=== PATIENT | male | born 1940 | race Caucasian/White ===

== ENCOUNTER 2017-06-10 12:28 | Emergency (ER) | payer MEDICARE, BC ==
--- NOTE | 2017-06-10 14:15 | RAD ---
INDICATION: Fever and fatigue. COMPARISON: There are no prior studies available for comparison. TECHNIQUE: Dual-energy PA and lateral views of the chest were obtained. FINDINGS: The heart is within normal limits in size. There is a large mass which projects over the posterior central aspect of the left lung measuring 13 x 10 cm in size. This has relatively well-defined margins. The lungs are otherwise clear. No pleural effusion is seen. The results of this exam were discussed with the referring clinician. IMPRESSION: LARGE MASS IN THE LEFT LUNG RECOMMEND A CT OF THE CHEST WITH CONTRAST FOR FURTHER EVALUATION, IN ADDITION CONSIDER A CT OF THE ABDOMEN AND PELVIS WITH CONTRAST.
[2017-06-10 15:33] LABS: Hematocrit 40 % (42-52); Hemoglobin 13.8 g/dl (14.0-18.0); Mean Corpuscular HGB Conc 35 g/dl (31-36); Mean Corpuscular Hemoglobin 30 pg (27-31); Mean Corpuscular Volume 85 fL (80-94); Mean Platelet Volume 7 um3 (7.4-10.4); Red Blood Count 4.64 10^6/ul (4.0-5.4); Red Cell Distribution Width 14 % (10.5-15); White Blood Count 16.3 10^3/ul (3.5-10.8)
[2017-06-10 15:49] LABS: Albumin 3.9 g/dL (3.2-5.2); BUN/Creatinine Ratio 13.6 (8-20); Calcium 9.3 mg/dL (8.6-10.3); EGFR African American 119.5 (>60); EGFR Non-African American 92.9 (>60); Globulin 3.2 g/dL (2-4); Potassium 4.1 mmol/L (3.5-5.0); Total Bilirubin 0.6 mg/dL (0.2-1.0); Total Protein 7.1 g/dL (6.4-8.9)
[2017-06-10] MEDS ORDERED: Iohexol 300* (CONTRAST) 10 ML SDV IV ONE (15:52)
[2017-06-10 16:44] LABS: Urine Bacteria Absent (Absent); Urine Bilirubin Negative (Negative); Urine Glucose Negative (Negative); Urine Nitrite Negative (Negative)
--- NOTE | 2017-06-10 17:01 | RAD ---
Indication: Lung mass. Contrast: Administered 91.1 ml of OMNIPAQUE 300 mg/ml CT of the chest, abdomen and pelvis was performed after oral and IV contrast demonstration. Coronal and sagittal reconstructed images were obtained. The inferior thyroid lobes are unremarkable. No significant mediastinal adenopathy is noted. The heart demonstrates no pericardial effusion. There is a large heterogeneous mass in the lingula measuring approximately 11.6 x 9.0 x 9.1 cm. It is lobulated in nature. This just abuts the pleura. No abnormal erosion of the bone is noted. No other pulmonary lesions are identified. No pleural fluid is identified. The axilla demonstrates no evidence of abnormal adenopathy. CT of the abdomen and pelvis demonstrates liver to be normal in size. Low density lesions consistent with water density likely represent cysts are noted. No definite solid lesions are identified. No intrahepatic duct dilatation is noted. The gallbladder demonstrates no calcified gallstones. No pericholecystic fluid or wall thickening is identified. The spleen is normal in size. No adrenal lesions are noted. The kidneys demonstrate symmetric nephrograms without hydronephrosis. No retroperitoneal lymphadenopathy is noted. No dilated loops of bowel are noted. CT of the pelvis demonstrates enlarged prostate. No free fluid is identified. The prostate is enlarged. No hernias are noted. Cortical cysts are noted in the upper pole of the right kidney. IMPRESSION: Cysts are noted in the liver and kidneys. Large mass well-circumscribed in the left upper lobe of the lung measuring 11.6 x 9.0 x 9.1 cm. No mediastinal or axillary adenopathy is noted.
[2017-06-10 19:52] VITALS: BP 153/87
--- NOTE | 2017-06-12 11:01 | ED ---
Lester Connell Benjamin, scribed for Corey Murphy MD on 06/10/17 at 1606 . HPI Febrile Illness - HPI Summary HPI Summary: 76yo male c/o fever, malaise, fatigue, generalized body aches for couple of weeks, and today finally went to his PCP for his symptoms. There pt had a CXR that showed a mass on his left lung. Pt was sent to ED for CT scan of his chest and further evaluation. - History of Current Complaint Chief Complaint: EDFever Time Seen by Provider: 06/10/17 15:13 Hx Obtained From: Patient Onset/Duration: Started Weeks Ago, Still Present Timing: Constant Initial Severity: Moderate Current Severity: Moderate Pain Intensity: 0 Pain Scale Used: 0-10 Numeric Associated Signs and Symptoms: Myalgia, Weakness - Allergy/Home Medications Allergies/Adverse Reactions: Allergies Allergy/AdvReac Type Severity Reaction Status Date / Time Amoxicillin [From Augmentin] Allergy Rash Verified 06/10/17 12:38 Clavulanic Acid Allergy Rash Verified 06/10/17 12:38 [From Augmentin] Sulfa Antibiotics Allergy Rash Verified 06/10/17 12:38 PMH/Surg Hx/FS Hx/Imm Hx Infectious Disease History: No Infectious Disease History: Denies: Traveled Outside the [place] in Last 30 Days - Family History Known Family History: Positive: Hypertension - Social History Occupation: Retired Review of Systems Positive: Fever, Fatigue, Other - malaise Eyes: Negative ENT: Negative Cardiovascular: Negative Positive: Cough Gastrointestinal: Negative Genitourinary: Negative Positive: no symptoms reported Positive: Myalgia - body aches Skin: Negative Neurological: Negative Psychological: Normal All Other Systems Reviewed And Are Negative: Yes Physical Exam Triage Information Reviewed: Yes Vital Signs On Initial Exam: Initial Vitals Temp Pulse Resp BP Pulse Ox 98.6 F 106 16 162/89 96 06/10/17 12:36 06/10/17 12:36 06/10/17 12:36 06/10/17 12:36 06/10/17 12:36 Vital Signs Reviewed: Yes Appearance: Positive: Well-Appearing, No Pain Distress, Well-Nourished Skin: Positive: Warm, Skin Color Reflects Adequate Perfusion, Dry Head/Face: Positive: Normal Head/Face Inspection Eyes: Positive: Normal, EOMI, MADDY ENT: Positive: Normal ENT inspection, Hearing grossly normal Neck: Positive: Supple, Nontender Respiratory/Lung Sounds: Positive: Clear to Auscultation, Breath Sounds Present Cardiovascular: Positive: RRR, Pulses are Symmetrical in both Upper and Lower Extremities Abdomen Description: Positive: Nontender, Soft Bowel Sounds: Positive: Present Musculoskeletal: Positive: Strength/ROM Intact Neurological: Positive: Sensory/Motor Intact, Alert, Oriented to Person Place, Time Psychiatric: Positive: Affect/Mood Appropriate Diagnostics - Vital Signs Vital Signs Temp Pulse Resp BP Pulse Ox 06/10/17 12:36 98.6 F 106 16 162/89 96 - Laboratory Lab Results: Lab Results 06/10/17 06/10/17 06/10/17 Range/Units 15:20 15:20 15:20 WBC 16.3 H (3.5-10.8) 10^3/ul RBC 4.64 (4.0-5.4) 10^6/ul Hgb 13.8 L (14.0-18.0) g/dl Hct 40 L (42-52) % MCV 85 (80-94) fL MCH 30 (27-31) pg MCHC 35 (31-36) g/dl RDW 14 (10.5-15) % Plt Count 366 (150-450) 10^3/ul MPV 7 L (7.4-10.4) um3 Neut % (Auto) 86.3 H (38-83) % Lymph % (Auto) 8.7 L (25-47) % Desha % (Auto) 4.0 (1-9) % Eos % (Auto) 0.4 (0-6) % Baso % (Auto) 0.6 (0-2) % Absolute Neuts (auto) 14.1 H (1.5-7.7) 10^3/ul Absolute Lymphs (auto) 1.4 (1.0-4.8) 10^3/ul Absolute Monos (auto) 0.7 (0-0.8) 10^3/ul Absolute Eos (auto) 0.1 (0-0.6) 10^3/ul Absolute Basos (auto) 0.1 (0-0.2) 10^3/ul Absolute Nucleated RBC 0 10^3/ul Nucleated RBC % 0 INR (Anticoag Therapy) 1.20 H (0.89-1.11) APTT 30.4 (26.0-36.3) seconds Lactic Acid 1.1 (0.5-2.0) mmol/L Result Diagrams: 06/10/17 15:20 06/10/17 15:20 Lab Statement: Any lab studies that have been ordered have been reviewed, and results considered in the medical decision making process. - Radiology CXR Xray Interpretation: Positive (See Comments) - IMPRESSION: LARGE MASS IN THE LEFT LUNG RECOMMEND A CT OF THE CHEST WITH CONTRAST FOR FURTHER EVALUATION, IN ADDITION CONSIDER A CT OF THE ABDOMEN AND PELVIS WITH CONTRAST. Radiology Interpretation Completed By: Radiologist - ED physician has reviewed this radiology report and agrees. - CT CT A/P W CT Interpretation: Positive (See Comments) - IMPRESSION: Cysts are noted in the liver and kidneys. Large mass well-circumscribed in the left upper lobe of the lung measuring 11.6 x 9.0 x 9.1 cm. No mediastinal or axillary adenopathy is noted. CT Interpretation Completed By: Radiologist - ED physician has reviewed this radiology report and agrees. Re-Evaluation - Re-Evaluation First Eval Re-Evaluation Time: 17:42 Comment: Reviewed labs and imaging reports with the pt and informed pt about the Oncology consult. Course/Dx - Course Course Of Treatment: Reviewed pts medication and allergy lists. High blood pressure noted. Spoke to DR. Chong (Radiologist supervisor cap and hat production) about pt's imaging reports at [address] Parsons (Oncologist) about pt's imaging reports at 1741 hour. He will come see the pt. - Diagnoses Provider Diagnoses: Lung mass Discharge - Discharge Plan Condition: Stable Disposition: HOME Referrals: Harman Parsons MD [Medical Doctor] - (PLEASE FOLLOW UP WITH DR. PARSONS FOR YOUR CONDITION.) The documentation as recorded by the Lester leavitt Benjamin accurately reflects the service I personally performed and the decisions made by me, Corey Murphy MD.
== END 2017-06-10 19:54 | disposition home or self-care (01) ==
LOC: ED 12:28
DX: R91.8 Other nonspecific abnormal finding of lung field (principal); M79.1 Myalgia; R53.1 Weakness; R50.9 Fever, unspecified; K76.89 Other specified diseases of liver; N28.1 Cyst of kidney, acquired; Z88.1 Allergy status to other antibiotic agents; Z88.2 Allergy status to sulfonamides
CPT/HCPCS: 36415; 71020; 71260; 74177; 80053; 81003; 81015; 83605; 84484; 85025; 85610; 85730; 87040; 99283; Q9967

== ENCOUNTER 2018-02-23 08:03 | Emergency (ER) | payer MEDICARE, BC ==
--- NOTE | 2018-02-23 09:53 | RAD ---
Indication: Fall, headaches. CT of the brain was performed without IV contrast. Ventricular structures are midline. No midline shift is noted. The extra-axial spaces are unremarkable. There is no evidence of intracranial mass or hemorrhage. No other high or low density lesions are identified. Bony calvaria, mastoid air cells and paranasal sinuses are clear. IMPRESSION: No intracranial mass or hemorrhage is noted.
--- NOTE | 2018-02-23 09:58 | RAD ---
Indication: Back pain after fall. CT of the lumbar spine was obtained in the axial plane. Sagittal and coronal reconstructed images were obtained. The vertebral bodies appear normal in height. No compression fracture is noted. At L5-S1 there is disc space narrowing with broad-based protrusion. No fracture is noted. Facet arthropathy is noted. No central or foraminal stenosis is noted. At L4-L5 mild disc space narrowing is noted. Broad-based protrusion flattens the thecal sac. No evidence of nerve root impingement is noted. At L3-L4 broad-based protrusion flattens the thecal sac. No central or foraminal stenosis is noted. At L2-L3 and L1-L2 minimal degenerative disc disease is noted. IMPRESSION: At L5-S1 there is disc space narrowing with broad-based protrusion without definite evidence of spinal stenosis. At L4-L5 minimal broad-based protrusion flattens the thecal sac. No central or foraminal stenosis is noted. Minimal broad-based protrusion at L3-L4. No fracture of the lumbar spine is noted.
[2018-02-23 10:21] VITALS: BP 132/86
--- NOTE | 2018-02-23 11:46 | ED ---
Head Injury - HPI Summary HPI Summary: Patient is a 77-year-old male presenting to the ED 7 days after a mechanical fall sustaining a head injury to the posterior scalp and subsequently back pain beginning 2 days after the fall denies LOC, confusion, memory loss. Denies any history of concussions. He states he continues to have a mild headache despite taking 200 mg ibuprofen a day for his headache. Continues to ambulate well, eating and drinking well, denies any fevers, sweats, chills, abdominal pain or visual disturbances. Symptoms are aggravated with nothing and alleviated with nothing. Pain is rated a 2/10 for headache and 5/10 for back pain. He states he was just concerned over possibly having a concussion versus other etiology. - History Of Current Complaint Chief Complaint: EDBackInjuryPain Stated Complaint: HEAD INJURY/BACK PAIN Time Seen by Provider: 02/23/18 08:48 Hx Obtained From: Patient Mechanism Of Injury: Direct Blow Onset/Duration: Started Hours Ago Onset of Pain: Minutes Severity Currently: Mild Severity Initially: Mild Pain Intensity: 5 Pain Scale Used: 0-10 Numeric Location of Head Injury: Occipital Aggravating Factor(s): Movement Alleviating Factor(s): Rest, Ice Associated Signs And Symptoms: Headache - Allergies/Home Medications Allergies/Adverse Reactions: Allergies Allergy/AdvReac Type Severity Reaction Status Date / Time amoxicillin [From Augmentin] Allergy Mild Rash Verified 02/23/18 09:38 clavulanic acid Allergy Mild Rash Verified 02/23/18 09:38 [From Augmentin] Sulfa (Sulfonamide Allergy Mild Rash Verified 02/23/18 09:38 Antibiotics) Home Medications: Home Medications Albuterol HFA INHALER* [Ventolin HFA Inhaler*] 1 - 2 puff INH Q6H PRN 02/23/18 [ History Confirmed 02/23/18] PMH/Surg Hx/FS Hx/Imm Hx Previously Healthy: Yes Endocrine/Hematology History: Denies: Hx Diabetes Cardiovascular History: Denies: Hx Hypertension History: Denies: Hx Renal Disease - Cancer History Cancer Type, 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 - Surgical History Surgery Procedure, Year, and Place: LEFT LUNG - Immunization History Hx Pertussis Vaccination: No Immunizations Up to Date: Unable to Obtain/Confirm Infectious Disease History: No Infectious Disease History: Denies: Traveled Outside the [place] in Last 30 Days - Social History Occupation: Unemployed Lives: With Family Alcohol Use: Rare Hx Substance Use: No Substance Use Type: Reports: None Hx Tobacco Use: No Smoking Status (MU): Never Smoked Tobacco Review of Systems Negative: Fever, Chills, Fatigue, Skin Diaphoresis Negative: Photophobia, Blurred Vision, Diplopia Negative: Palpitations, Chest Pain Negative: Shortness Of Breath, Cough Genitourinary: Negative Positive: no symptoms reported, see HPI Positive: Arthralgia Skin: Negative Positive: Headache All Other Systems Reviewed And Are Negative: Yes Physical Exam Triage Information Reviewed: Yes Vital Signs On Initial Exam: Initial Vitals Temp Pulse Resp BP Pulse Ox 97.9 F 94 16 156/89 95 02/23/18 08:06 02/23/18 08:06 02/23/18 08:06 02/23/18 08:06 02/23/18 08:06 Vital Signs Reviewed: Yes Appearance: Positive: Well-Appearing, Well-Nourished Skin: Positive: Warm, Skin Color Reflects Adequate Perfusion Head/Face: Positive: Normal Head/Face Inspection Eyes: Positive: EOMI, MADDY, Conjunctiva Clear Neck: Positive: Supple, No Lymphadenopathy Respiratory/Lung Sounds: Positive: Clear to Auscultation, Breath Sounds Present Cardiovascular: Positive: RRR, Pulses are Symmetrical in both Upper and Lower Extremities Musculoskeletal: Positive: Pain @ - low back pain. Negative: Edema Left, Edema Right Neurological: Positive: Sensory/Motor Intact, Alert, Oriented to Person Place, Time, Speech Normal Psychiatric: Positive: Normal, Affect/Mood Appropriate AVPU Assessment: Alert Diagnostics - Vital Signs Vital Signs Temp Pulse Resp BP Pulse Ox 02/23/18 10:20 98.2 F 78 16 132/86 98 02/23/18 08:06 97.9 F 94 16 156/89 95 - Laboratory Lab Statement: Any lab studies that have been ordered have been reviewed, and results considered in the medical decision making process. Head Injury Course/Dx Course Of Treatment: During the course of treatment, the patient's evaluated for head injury. No focal neuro deficits noted. ANO 3. He has a mild headache posteriorly, but denies any other neurologic symptoms. Endorses bilateral low back pain with intermittent radiation of pain to the legs. Denies any bladder or bowel dysfunction or weakness. CT spine lumbar and CT brain obtained. CT brain shows no acute intracranial abnormalities. CT lumbar spine shows some facet degeneration, but nothing acute and no fractures are noted. Patient is made aware of these results. I have offered a muscle relaxer , however he declines this and would like to maintain on his ibuprofen. I have encouraged him to increase to 600 mg per day for the next 3 days and follow up with his PCP. - Diagnoses Provider Diagnoses: Head trauma, Acute low back pain Discharge - Sign-Out/Discharge Documenting (check all that apply): Discharge/Admit/Transfer - Discharge Plan Condition: Stable Disposition: HOME Referrals: Sabra Buenrostro MD [Primary Care Provider] - Additional Instructions: Tylenol 650 mg 3 times daily Ibuprofen 600 mg 3 times daily You may use these medications intermittently Please follow-up with your PCP - Billing Disposition and Condition Condition: STABLE Disposition: Home
== END 2018-02-23 10:20 | disposition home or self-care (01) ==
LOC: ED 08:03
DX: S09.90XA Unspecified injury of head, initial encounter (principal); W19.XXXA Unspecified fall, initial encounter; Y92.9 Unspecified place or not applicable; M51.27 Other intervertebral disc displacement, lumbosacral region; Z88.3 Allergy status to other anti-infective agents; Z88.2 Allergy status to sulfonamides
CPT/HCPCS: 70450; 72131; 99282

== ENCOUNTER 2019-06-25 13:45 | Emergency (ER) | payer MEDICARE, BC ==
--- OUTSIDE RECORDS SUMMARY | 2019-06-25 13:57 | XMS REPORT | Continuity of Care Document ---
:1940 External Reference #:[id number] Author Name Malgorzata Rdz PA-C Address [address] [place] [address] Care Team Providers Name Role Phone Donya Yates - Physician Care Team Information Signing Agent Car Pincher Problems Active Problems Provider Date Allergic rhinitis due to pollen Andrea Aguilera MD Onset: 05/24/2011 Impacted cerumen Andrea Aguilera MD Onset: 05/24/2011 Social History Type Date Description Comments Sex Unknown Tobacco Use Start: Unknown Never Smoked Cigarettes Tobacco Use Start: Unknown Never Smoked Cigars Tobacco Use Start: Unknown Never Smoked A Pipe Smokeless Tobacco Never Used Smokeless Tobacco ETOH Use Currently occasionally consumes alcohol Tobacco Use Start: Unknown Patient has never smoked Smoking Status Reviewed: 05/01/19 Patient has never smoked Allergies, Adverse Reactions, Alerts Active Allergies Reaction Severity Comments Date sulfa 03/22/2011 Medications Active Medications SIG Qnty Indications Ordering Provider Date Azelastine HCL use up to 2 90ml J30.2 Andrea Nicole 05/01/2019 (Nasal) sprays per MD Willy 0.15% Solution nostril 2 times a day as needed. Fluticasone 2 sprays each 6month Andrea Nicole 08/11/2014 Propionate nostril daily MD Willy 50mcg/Act Suspension Albuteral Inhaler Unknown January Allergy Unknown Mucinex D Unknown Vitamin C Unknown Omeprazole Unknown Proscar once daily Sabra Buenrostro, 5mg Tablets M.D. Klonopin 1/2 tab at Unknown 0.5mg Tablets bedtime Advair Diskus Inhale 1 puff By Unknown Mouth Two Times 250-50mcg/Dose Daily Aerosol Dutasteride Take 1 Capsule By Unknown 0.5mg Mouth Every Day Capsules as Directed Alrex Instill 1 Drop In Unknown 0.2% Suspension Each Eye Two Times Daily Escitalopram Oxalate Take 1 Tablet By Unknown Mouth Every Day 10mg Tablets Advair Diskus Sabra Buenrostro, M.D. 250-50mcg/Dose Aerosol Immunizations Description No Information Available Vital Signs Date Vital Result Comment 05/01/2019 9:02am Weight 165.00 lb Weight 74.844 kg Height 67 inches 5'7" Height in cm's 170.2 cm BMI (Body Mass Index) 25.8 kg/m2 12/02/2018 9:55am Weight 165.00 lb Weight 74.844 kg Height 67 inches 5'7" Height in cm's 170.2 cm BMI (Body Mass Index) 25.8 kg/m2 Results Description No Information Available Procedures Date Code Description Status 05/01/2019 11856 Nasal Endoscopy, Diagnostic Completed Medical Devices Description No Information Available Encounters Type Date Location Provider Dx Diagnosis Office Visit 05/01/2019 [place] Malgorzata Rdz J30.2 Other seasonal 9:00a 08/26/07 [facility] allergic rhinitis Office Visit 12/02/2018 [place] Andrea Nicole H61.23 Impacted cerumen, 10:00a 08/26/07 MD Willy bilateral J30.2 Other seasonal allergic rhinitis Assessments Date Code Description Provider 05/01/2019 J30.2 Other seasonal allergic rhinitis Malgorzata Rdz PA-C 12/02/2018 H61.23 Impacted cerumen, bilateral Andrea Aguilera MD 12/02/2018 J30.2 Other seasonal allergic rhinitis Andrea Aguilera MD Plan of Treatment 05/01/2019 - KARLA PinedoCJ30.2 Other seasonal allergic rhinitisNew Medication:Azelastine HCL (Nasal) 0.15 % - use up to 2 sprays per nostril 2 times a day as needed. Functional Status Description No Information Available Mental Status Description No Information Available Referrals Description No Information Available
--- NOTE | 2019-06-25 14:28 | ED ---
Lower Extremity - HPI Summary HPI Summary: Pt. is a 78 y.o male who presents to the ER for right calf pain and cramping x several days. Pt. notes he recently got back from a trip to [place]. Notes a lot of walking but denies injury or falls. Pt. notes pain to calf has become more constant and is exacerbated by walking. Also notes cramping to calf when sleeping. Pt. denies cp or sob. No hx of dvt. Sxs are mild in severity. No current modifying factors. - History of Current Complaint Chief Complaint: EDExtremityLower Stated Complaint: PAIN IN RT LEG PER PT Time Seen by Provider: 06/25/19 14:18 Hx Obtained From: Patient Pain Intensity: 1 - Allergies/Home Medications Allergies/Adverse Reactions: Allergies Allergy/AdvReac Type Severity Reaction Status Date / Time amoxicillin [From Augmentin] Allergy Mild Rash Verified 06/25/19 14:45 clavulanic acid Allergy Mild Rash Verified 06/25/19 14:45 [From Augmentin] Sulfa (Sulfonamide Allergy Mild Rash Verified 06/25/19 14:45 Antibiotics) PMH/Surg Hx/FS Hx/Imm Hx Previously Healthy: Yes Endocrine/Hematology History: Denies: Hx Diabetes Cardiovascular History: Denies: Hx Hypertension History: Denies: Hx Renal Disease - Cancer History Cancer Type, 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 - Surgical History Surgery Procedure, Year, and Place: LEFT LUNG - LOBECTOMY 2017 Infectious Disease History: No Infectious Disease History: Reports: Traveled Outside the [place] in Last 30 Days - Family History Known Family History: Positive: Non-Contributory - Social History Occupation: Retired Lives: With Family Alcohol Use: Rare Hx Substance Use: No Substance Use Type: Reports: None Hx Tobacco Use: No Smoking Status (MU): Never Smoked Tobacco Review of Systems Constitutional: Negative Cardiovascular: Negative Respiratory: Negative Positive: Other - right calf pain and cramping Skin: Negative Neurological: Negative All Other Systems Reviewed And Are Negative: Yes Physical Exam Triage Information Reviewed: Yes Vital Signs On Initial Exam: Initial Vitals Temp Pulse Resp BP Pulse Ox 96.6 F 77 18 177/103 97 06/25/19 13:47 06/25/19 13:47 06/25/19 13:47 06/25/19 13:47 06/25/19 13:47 Vital Signs Reviewed: Yes Appearance: Positive: Well-Appearing - Pt. sitting in chair in NAD> Pleasant. Skin: Positive: Warm, Dry Head/Face: Positive: Normal Head/Face Inspection Eyes: Positive: Normal, EOMI Musculoskeletal: Positive: Other - Tenderness to left lower leg. No edema, wounds or erythema. No knee or ankle tenderness. Neurological: Positive: Normal, CN Intact II-III Psychiatric: Positive: Affect/Mood Appropriate Procedures - Sedation Patient Received Moderate/Deep Sedation with Procedure: No Diagnostics - Vital Signs Vital Signs Temp Pulse Resp BP Pulse Ox 06/25/19 13:47 96.6 F 77 18 177/103 97 - Laboratory Result Diagrams: 06/25/19 15:32 06/25/19 15:32 Lab Statement: Any lab studies that have been ordered have been reviewed, and results considered in the medical decision making process. Lower Extremity Course/Dx - Course Course Of Treatment: Pt. with right calf pain and cramping after recent plan trip. NO signs of infection or injury on exam. Pt. labs and u/s ordered. Labs unremarkable. IMPRESSION: NO DVT VISUALIZED. HOWEVER SLOW STAGNANT FLOW IS VISUALIZED IN THE POPLITEAL. AND POSTERIOR TIBIAL VEINS. Suspect muscle strain. Advised stretching, heat and light activity. Advised repeat u/s in 2 weeks if pain persist. Pt. understands and agrees with plan. - Diagnoses Differential Diagnosis/HQI/PQRI: Positive: Arthritis, Cellulitis, Contusion, DVT , Sprain, Strain Provider Diagnoses: Muscle cramp, Muscle strain Discharge ED - Sign-Out/Discharge Documenting (check all that apply): Patient Departure - Discharge Plan Condition: Good Disposition: HOME Patient Education Materials: Leg Cramps (ED) Referrals: Sabra Buenrostro MD [Primary Care Provider] - Additional Instructions: Follow up with your PCP for repeat ultrasound in 1-2 weeks Increase fluids Gentle stretching and massage to leg Tylenol for pain as directed Return to ER if symptoms change or worsen - Billing Disposition and Condition Condition: GOOD Disposition: Home - Attestation Statements Provider Attestation: I was available for consultation for this patient. I did not evaluate the patient or participate in any medical decision making or disposition decisions unless I am specifically named in the chart as having consulted on the patient. If I have consulted on the patient, please see my own ED note on the patient encounter. Vivek Sanders MD
[2019-06-25 15:46] LABS: ABS Eosinophils 0.3 10^3/ul (0-0.6); ABS Lymphocytes 1.8 10^3/ul (1.0-4.8); ABS Monocytes 0.5 10^3/ul (0-0.8); ABS Neutrophils 5.4 10^3/ul (1.5-7.7); Eosinophil % 3.2 %; Hematocrit 44 % (42-52); Hemoglobin 15.1 g/dL (14.0-18.0); Lymphocyte % 22.6 %; Mean Corpuscular HGB Conc 35 g/dL (31-36); Mean Corpuscular Hemoglobin 32 pg (27-31); Mean Corpuscular Volume 92 fL (80-94); Platelet Count 274 10^3/uL (150-450); Red Blood Count 4.74 10^6 /uL (4.18-5.48); Red Cell Distribution Width 14 % (10-15)
[2019-06-25 16:04] LABS: INR 1.03 (0.82-1.09)
[2019-06-25 16:07] LABS: Albumin 4.1 g/dL (3.2-5.2); Albumin/Globulin Ratio 1.6 (1-3); Calcium 9.2 mg/dL (8.6-10.3); EGFR African American 87.7 (>60); EGFR Non-African American 72.5 (>60); Globulin 2.6 g/dL (2-4); Potassium 4.7 mmol/L (3.5-5.0); Total Bilirubin 0.4 mg/dL (0.2-1.0); Total Protein 6.7 g/dL (6.4-8.9)
[2019-06-25 17:04] VITALS: BP 155/94
== END 2019-06-25 17:00 | disposition home or self-care (01) ==
LOC: ED 13:45
DX: S86.911A Strain of unspecified muscle(s) and tendon(s) at lower leg level, right leg, initial encounter (principal); X58.XXXA Exposure to other specified factors, initial encounter; Y92.9 Unspecified place or not applicable; Z88.1 Allergy status to other antibiotic agents; Z88.0 Allergy status to penicillin; Z88.2 Allergy status to sulfonamides
CPT/HCPCS: 36415; 80053; 83735; 85025; 85610; 99282